=== PATIENT | female | born 1945 | race Caucasian/White ===

== ENCOUNTER 2017-09-19 12:51 | Emergency (ER) | payer OTHER ==
[~2017-09-19] VITALS: Ht 167.6 cm; Wt 70.4 kg
[~2017-09-19 12:51] MED LIST: ASPCH81 PO; MULT-506 PO
[2017-09-19 13:01] VITALS: TEMP 36.9; Ht 167.6 cm; Wt 70.4 kg
[2017-09-19] MEDS ORDERED: BIOT1TAB5 PO (13:37)
[2017-09-19] MEDS ORDERED: ASPI-461 PO (13:37)
[2017-09-19] MEDS ORDERED: KRIL1000 PO (13:37)
[2017-09-19] MEDS ORDERED: PRLSR20 PO (13:37)
--- NOTE | 2017-09-19 13:40 | EMERGENCY ROOM VISIT NOTE ---
History First contact with patient: 13:19 Chief Complaint: OTHER COMPLAINT Stated Complaint: LIGHT HEADED, LEFT LEG WEAKNESS History of Present Illness The patient is a 72 year old female who presents to the Emergency Room at the request of her PCP whom she called this morning after experiencing left lower leg and foot weakness around 8 am while walking her dog. She describes it as numbness, and as if she could not "control" it because she couldn't feel where she was stepping. The sensation was isolated to her left lower leg and foot. She denies falling while she was walking. She was able to walk back to her house, and then she did trip up her steps. At this time she looked at herself in the mirror to check for facial droop, and there was none, and then she took 3 baby aspirin. She says that by 9 am her symptoms were resolved. She says she called her daughter to see if she should call her PCP, then she called her PCP who told her to be evaluated at the ED. At that point she took 3 more baby aspirin. She says that since her symptoms were resolved, she ran errands and then came to the ED now. She denies any history of stroke or heart arrhythmias. She reports a DVT in her left leg more than 10 years ago that was provoked after prolonged immobility from a surgery. Review of Systems ROS See HPI for pertinent positives and negatives. Past Medical/Surgical History Medical Problems: (1) Adjustment disorder with depressed mood (2) Diverticulitis of colon (3) Factor V Leiden mutation (4) Small bowel obstruction (5) Varicose veins of lower extremity (6) Venous thrombosis Social History Smoking Status: Never Smoker Drug Use: none Marital Status: Occupation Status: employed Current/Historical Medications Scheduled Aspirin (Aspirin), 81 MG PO DAILY Biotin (Biotin), 1,000 MCG PO DAILY Enoxaparin (Lovenox), 70 MG SQ Q12H Krill Oil (Krill Oil), 1 CAP PO DAILY Warfarin Sodium (Coumadin), 1 TAB PO DAILY Scheduled PRN Omeprazole (Prilosec), 20 MG PO DAILY PRN for Indigestion Physical Exam Vital Signs Date Time Temp Pulse Resp B/P (MAP) Pulse Ox O2 Delivery O2 Flow Rate FiO2 09/19/17 14:31 60 18 135/69 98 Room Air 09/19/17 13:18 65 09/19/17 13:01 36.9 79 20 153/78 97 Room Air Physical Exam GENERAL: Awake, alert, well-appearing, in no distress HENT: Normocephalic, atraumatic. EYES: Normal conjunctiva. Sclera non-icteric. NECK: Supple. FROM. No JVD. No carotid bruits. RESPIRATORY: Clear to auscultation. CARDIAC: Regular rate, normal rhythm. Extremities warm and well perfused. Pulses equal. ABDOMEN: Soft, non-distended. No tenderness to palpation. No rebound or guarding. No masses. LOWER EXTREMITIES: Left calf is moderately >> than right calf, mildly tender to palpation on posterior calf. NEURO: No sensory or motor deficits noted. CN II-XII in tact. Finger to nose in tact. SKIN: No rash or jaundice noted. Medical Decision & Procedures Laboratory Results 09/19/17 13:18 09/19/17 13:18 Test 09/19/17 13:18 Red Blood Count 4.30 M/uL (4.2-5.4) Mean Corpuscular Volume 90.2 fL (80-100) Mean Corpuscular Hemoglobin 31.6 pg (25-34) Mean Corpuscular Hemoglobin Concent 35.1 g/dl (32-36) RDW Standard Deviation 43.6 fL (36.4-46.3) RDW Coefficient of Variation 13.3 % (11.5-14.5) Mean Platelet Volume 9.2 fL (7.4-10.4) Prothrombin Time 10.1 SECONDS (9.0-12.0) Prothromb Time International Ratio 1.0 (0.9-1.1) Urine Color YELLOW Urine Appearance CLEAR (CLEAR) Urine pH 5.5 (4.5-7.5) Urine Specific [place] 1.007 (1.000-1.030) Urine Protein NEG (NEG) Urine Glucose (UA) NEG (NEG) Urine Ketones NEG (NEG) Urine Occult Blood NEG (NEG) Urine Nitrite NEG (NEG) Urine Bilirubin NEG (NEG) Urine Urobilinogen NEG (NEG) Urine Leukocyte Esterase NEG (NEG) Urine WBC (Auto) 0 /hpf (0-5) Urine RBC (Auto) 0-4 /hpf (0-4) Urine Hyaline Casts (Auto) 0 /lpf (0-5) Urine Epithelial Cells (Auto) 0-5 /lpf (0-5) Urine Bacteria (Auto) NEG (NEG) Anion Gap 6.0 mmol/L (3-11) Est Creatinine Clear Calc Drug Dose 54.4 ml/min Estimated GFR () 75.1 Estimated GFR (Non- 64.8 BUN/Creatinine Ratio 15.6 (10-20) Calcium Level 8.9 mg/dl (8.5-10.1) Total Bilirubin 0.4 mg/dl (0.2-1) Aspartate Amino Transf (AST/SGOT) 15 U/L (15-37) Alanine Aminotransferase (ALT/SGPT) 22 U/L (12-78) Alkaline Phosphatase 75 U/L (45-117) Total Protein 7.5 gm/dl (6.4-8.2) Albumin 3.9 gm/dl (3.4-5.0) Globulin 3.6 gm/dl (2.5-4.0) Albumin/Globulin Ratio 1.1 (0.9-2) Medications Administered Lovenox 70mg SQ x one dose Coumadin 5mg tab x one dose Procedure ULTRASOUND L VENOUS DOPP LOWER EXT UNILAT CLINICAL HISTORY: Left leg swelling. COMPARISON STUDY: No previous studies for comparison. FINDINGS: No thrombus is visualized within the left common femoral superficial femoral or popliteal veins. There is nonocclusive thrombus within one of 2 peroneal veins. There is no posterior tibial or anterior tibial vein thrombus. IMPRESSION: 1. Calf DVT involving one of 2 peroneal veins. 2. No evidence of [id number] thrombus Electronically signed by: Christopher Jeffery M.D. 09/19/2017 2:59 PM Dictated Date/Time: 09/19/2017 2:58 PM CHEST ONE VIEW PORTABLE CLINICAL HISTORY: 72 years-old Female presenting with r/o TIA lightheadedness, left leg weakness. TECHNIQUE: Portable upright AP view of the chest was obtained. COMPARISON: 03/30/2011. FINDINGS: Atherosclerosis of the aortic arch. Cardiac silhouette top normal in size. No focal opacity. No large effusion or pneumothorax. Lungs may be hyperinflated. Osseous structures normal. Upper abdomen normal. IMPRESSION: 1. No acute cardiopulmonary disease. Electronically signed by: Nirmal Gordon M.D. 09/19/2017 2:16 PM Dictated Date/Time: 09/19/2017 2:[address] SCAN OF THE BRAIN WITHOUT IV CONTRAST CLINICAL HISTORY: Transient ischemic attack. COMPARISON STUDY: No priors. TECHNIQUE: Unenhanced axial CT scan of the brain is performed from the vertex to the skull base. A dose lowering technique was utilized adhering to the principles of ALARA. CT DOSE: 638.56 mGycm FINDINGS: Brain parenchyma: There are age-related involutional changes noting mild subcortical and periventricular microangiopathic change. There is no hemorrhage, mass effect, or evidence of acute territorial ischemia by CT criteria. [place]-white matter is preserved. No extra-axial fluid collection is seen. Ventricles, sulci, cisterns: Prominent secondary to involutional change. Intracranial vasculature: There is atherosclerotic calcification of the cavernous carotid arteries. Calvarium: Unremarkable. Sinuses and mastoids: The visualized paranasal sinuses are clear. The mastoid air cells are well pneumatized. Orbits: The bony orbits are grossly intact. IMPRESSION: There is no hemorrhage, mass effect, or evidence of acute territorial ischemia by CT criteria. Electronically signed by: Quincy Landon M.D. 09/19/2017 2:09 PM Dictated Date/Time: 09/19/2017 2:07 PM ECG Per My Interpretation Indication: weakness Rate (beats per minute): 59 Rhythm: sinus bradycardia Findings: no acute ischemic change, no ectopy Comparison ECG Date: no prior available ED Course 1319 Reviewed record, saw and assessed patient in B3B. 1340 Ordered labs CBC, CMP, PT INR. Also head CT and LE venous doppler. [address] and US results. Non occlusive left peroneal DVT. Pt denies any symptoms at this time. Has been on lovenox and coumadin before. Pt does not want to stay in the hospital. She also states she will be traveling to [facility] in about a month. Agreeable to me calling her PCP to discuss further outpatient work up of her symptoms. [address] Bee, he understands and agrees with plan, will set pt up with Coumadin clinic. 1620 Updated pt. Gave her prescriptions for lovenox and coumadin. She will get one dose of each here before she leaves. Pt is agreeable to plan, verbalized understanding. Medically stable for discharge. Medical Decision The patient is a 72 year old female who presents to the Emergency Room at the request of her PCP whom she called this morning after experiencing left lower leg and foot weakness around 8 am while walking her dog. She describes it as numbness, and as if she could not "control" it because she couldn't feel where she was stepping. The sensation was isolated to her left lower leg and foot. She denies falling while she was walking. She was able to walk back to her house, and then she did trip up her steps. At this time she looked at herself in the mirror to check for facial droop, and there was none, and then she took 3 baby aspirin. She says that by 9 am her symptoms were resolved. She says she called her daughter to see if she should call her PCP, then she called her PCP who told her to be evaluated at the ED. At that point she took 3 more baby aspirin. She says that since her symptoms were resolved, she ran errands and then came to the ED now. She denies any history of stroke or heart arrhythmias. She reports a DVT in her left leg more than 10 years ago that was provoked after prolonged immobility from a surgery. Diff dx: TIA, CVA, DVT, lumbar radiculopathy, neuropathy CBC, CMP and UA are all unremarkable. CT of head shows no acute abnormality. CXR is normal. Ultrasound of LLE shows non occlusive DVT in left peroneal vein. Pt has been free of any neurological symptoms since she has been here in the ED. Discussed with pt's PCP her status, her DVT and to consider further outpatient work up of her neurologic symptoms - echo, brain MRI and carotid dopplers. PCP will get pt set up with coumadin clinic. Gave a dose of lovenox and coumadin here before she is discharged. Pt verbalized understanding and agreement with plan. Medication Reconcilliation Current Medication List: was personally reviewed by me Blood Pressure Screening Patient's blood pressure: Elevated blood pressure Blood pressure disposition: Elevated BP felt to be situational Consults Time Called: 15:40 Consulting Physician: Darius Bee Jr., MD Returned Call: 15:59 Discussed with pt's PCP her status. He verbalized understanding and says he will consider brain MRI and carotid dopplers and echo, and will set pt up with Coumadin clinic. Impression Primary Impression: TIA (transient ischemic attack) Additional Impression: DVT (deep venous thrombosis) Departure Information Dispostion Home / Self-Care Condition GOOD Prescriptions Warfarin Sodium (COUMADIN) 5 Mg Tab 1 TAB PO DAILY for 7 Days, #7 TAB 0 Refills Prov: Sonia Thompson M.D. 09/19/17 Enoxaparin (Lovenox) 80 Mg/0.8 Ml Inj 70 MG SQ Q12H for 7 Days, #14 SYR Prov: Sonia Thompson M.D. 09/19/17 Referrals Darius Bee M.D. ([facility]) (PCP) Patient Instructions [facility] Additional Instructions You were seen in the ED for symptoms of TIA and were found to have a blood clot in one of your veins in the left lower leg. You may need additional work up of your TIA symptoms like a brain MRI, carotid artery doppler ultrasound. Please discuss this with your primary physician. For your blood clot we are starting you on Lovenox injections and Coumadin tabs daily, which your primary physician will need to follow you to check how thin your blood is, the goal is INR of 2-3 (it is currently 1.) You should see your primary physician in 1-3 days. Should your symptoms return like numbness and tingling anywhere, facial droop, or slurred speech, please call 911 and return to the emergency department immediately. Resident Tracking Resident Involvement: Resident Care Provided Care Provided: Adult ED Problem Qualifiers
[2017-09-19 13:48] LABS: HEMATOCRIT 38.8 % (37-47); HEMOGLOBIN 13.6 g/dL (12.0-16.0); MEAN CELL VOLUME 90.2 fL (80-100); MEAN CORPUSCULAR HEMOGLOBIN 31.6 pg (25-34); MEAN CORPUSCULAR HGB CONC 35.1 g/dl (32-36); MEAN PLATELET VOLUME 9.2 fL (7.4-10.4); PLATELET COUNT 238 K/uL (130-400); RED CELL DISTRIBUTION WIDTH CV 13.3 % (11.5-14.5); RED CELL DISTRIBUTION WIDTH SD 43.6 fL (36.4-46.3); WHITE BLOOD COUNT 6.03 K/uL (4.8-10.8)
[2017-09-19 13:55] LABS: ALBUMIN 3.9 gm/dl (3.4-5.0); CALCIUM 8.9 mg/dl (8.5-10.1); CREATININE 0.9 mg/dl (0.60-1.20); POTASSIUM 3.8 mmol/L (3.5-5.1)
[2017-09-19 13:58] LABS: TOTAL PROTEIN 7.5 gm/dl (6.4-8.2)
--- NOTE | 2017-09-19 14:10 | DIAGNOSTIC IMAGING REPORT ---
CT SCAN OF THE BRAIN WITHOUT IV CONTRAST CLINICAL HISTORY: Transient ischemic attack. COMPARISON STUDY: No priors. TECHNIQUE: Unenhanced axial CT scan of the brain is performed from the vertex to the skull base. A dose lowering technique was utilized adhering to the principles of ALARA. CT DOSE: 638.56 mGycm FINDINGS: Brain parenchyma: There are age-related involutional changes noting mild subcortical and periventricular microangiopathic change. There is no hemorrhage, mass effect, or evidence of acute territorial ischemia by CT criteria. [place]-white matter is preserved. No extra-axial fluid collection is seen. Ventricles, sulci, cisterns: Prominent secondary to involutional change. Intracranial vasculature: There is atherosclerotic calcification of the cavernous carotid arteries. Calvarium: Unremarkable. Sinuses and mastoids: The visualized paranasal sinuses are clear. The mastoid air cells are well pneumatized. Orbits: The bony orbits are grossly intact. IMPRESSION: There is no hemorrhage, mass effect, or evidence of acute territorial ischemia by CT criteria. Electronically signed by: Quincy Landon M.D. 09/19/2017 2:09 PM Dictated Date/Time: 09/19/2017 2:07 PM
--- NOTE | 2017-09-19 14:17 | DIAGNOSTIC IMAGING REPORT ---
CHEST ONE VIEW PORTABLE CLINICAL HISTORY: 72 years-old Female presenting with r/o TIA lightheadedness, left leg weakness. TECHNIQUE: Portable upright AP view of the chest was obtained. COMPARISON: 03/30/2011. FINDINGS: Atherosclerosis of the aortic arch. Cardiac silhouette top normal in size. No focal opacity. No large effusion or pneumothorax. Lungs may be hyperinflated. Osseous structures normal. Upper abdomen normal. IMPRESSION: 1. No acute cardiopulmonary disease. Electronically signed by: Nirmal Gordon M.D. 09/19/2017 2:16 PM Dictated Date/Time: 09/19/2017 2:15 PM
--- NOTE | 2017-09-19 14:45 | EMERGENCY ROOM VISIT NOTE ---
ED Visit Note First contact with patient: 13:19 Resident Physician Supervision Note: I was present with Dr. Thompson during the history and exam. I discussed the case with the resident and agree with the findings and plan as documented in the note. Any exceptions or clarifications are listed here: None Documented By: Carmine Sewell
--- NOTE | 2017-09-19 15:01 | DIAGNOSTIC IMAGING REPORT ---
ULTRASOUND L VENOUS DOPP LOWER EXT UNILAT CLINICAL HISTORY: Left leg swelling. COMPARISON STUDY: No previous studies for comparison. FINDINGS: No thrombus is visualized within the left common femoral superficial femoral or popliteal veins. There is nonocclusive thrombus within one of 2 peroneal veins. There is no posterior tibial or anterior tibial vein thrombus. IMPRESSION: 1. Calf DVT involving one of 2 peroneal veins. 2. No evidence of [id number] thrombus Electronically signed by: Christopher Jeffery M.D. 09/19/2017 2:59 PM Dictated Date/Time: 09/19/2017 2:58 PM
[2017-09-19] MEDS ORDERED: ENOXAPARIN 80 MG/0.8 ML SYR SQ STA (16:05)
[2017-09-19] MEDS ORDERED: ENOX80IN SQ (16:12)
[2017-09-19] MEDS ORDERED: WARF5TAB90 PO (16:12)
[2017-09-19] MEDS ORDERED: WARFARIN SOD 10 MG TAB PO ONE (16:15)
[2017-09-19 16:23] VITALS: BP 146/65; PULSE 57; O2SAT 97
== END 2017-09-19 16:40 | disposition home or self-care (01) ==
LOC: C.EDB 12:53
DX: G45.9 Transient cerebral ischemic attack, unspecified (principal); I82.402 Acute embolism and thrombosis of unspecified deep veins of left lower extremity; D68.51 Activated protein C resistance; Z86.718 Personal history of other venous thrombosis and embolism; Z79.82 Long term (current) use of aspirin; Z79.899 Other long term (current) drug therapy